=== PATIENT | female | born 1975 | race Caucasian/White ===

== ENCOUNTER 2018-11-25 23:45 | Emergency (ER) ==
[2018-11-25 23:52] VITALS: BP 149/93; TEMP 97.2; BMI 36.1
[2018-11-25] MEDS ORDERED: CITRATE OF MAGNESIA PO STA (23:57)
[2018-11-25] MEDS ORDERED: DULCOLAX RC STA (23:57)
[2018-11-25] MEDS ORDERED: SENNA PO STA (23:58)
--- NOTE | 2018-11-26 00:53 | CT ---
EXAM: CT of the abdomen and pelvis without contrast. HISTORY: Constipation. PROCEDURE: Contiguous axial CT images of the abdomen and pelvis without contrast with coronal and sa gittal reformats. FINDINGS: The liver, gallbladder, pancreas, spleen, adrenal glands and kidneys are normal in appearan ce. The abdominal aorta is normal in appearance. There is a small hiatal hernia. The appendix is not visualized and there are surgical clips along the margin of the cecum consistent with appendectomy. There is fecal impaction in the rectum which measures 8.6 x 7.5 cm on a single axial image. There is circumferential bowel wall thickening in the rectum measuring up to 0.8 cm with perirectal edema. No free fluid or free air in the abdomen or pelvis. The uterus is unremarkable. The bladder is adequ ately filled with no abnormality identified. The bones and soft tissues are unremarkable. Impression: Fecal impaction in the rectum as described. Circumferential bowel wall thickening in the rectum measuring 0.8 cm with perirectal edema. The diff erential diagnosis includes proctitis and stercoral colitis. Small hiatal hernia. Appendectomy.
--- NOTE | 2018-11-26 02:05 | ED.PDOC ---
General ED Provider: Dr. SHARON JEROME-ER Chief Complaint: Constipation Stated Complaint: im constipated Time Seen by Physician: 02:03 Mode of Arrival: Walk-In Information Source: Patient Exam Limitations: No limitations Primary Care Provider: SHARON JEROME Nursing and Triage Documentation Reviewed and Agree: Yes Does patient meet sepsis criteria?: No System Inflammatory Response Syndrome: Not Applicable Sepsis Protocol: For patient's 13 years and over: Temp is 96.8 and below OR 101 and greater Pulse >90 BPM Resp >20/minute Acutely Altered Mental Status Are patient's symptoms suggestive of a new infection, such as: -Pneumonia -Skin, Soft Tissue -Endocarditis -UTI -Bone, Joint Infection -Implantable Device -Acute Abdominal Infection -Wound Infection -Meningitis -Blood Stream Catheter Infection -Unknown GI Complaint Exam - Abdominal Pain Complaint/Exam Onset: Gradual Duration: 24 hrs Symptoms Are: Still present Timing: Constant Initial Severity: Mild Current Severity: Mild Location of Pain: Diffuse Character: Reports: Dull Aggravating: Reports: Movement Alleviating: Reports: Spontaneous resolution Associated Signs and Symptoms: Reports: Constipation Review of Systems - Review Of Systems Constitutional: Reports: No symptoms Eyes: Reports: No symptoms Ears, Nose, Mouth, Throat: Reports: No symptoms Respiratory: Reports: No symptoms Cardiac: Reports: No symptoms GI: Reports: Constipated : Reports: No symptoms Musculoskeletal: Reports: No symptoms Skin: Reports: No symptoms Neurological: Reports: No symptoms Endocrine: Reports: No symptoms Hematologic/Lymphatic: Reports: No symptoms All Other Systems: Reviewed and Negative Past Medical History - Past Medical History Previously Healthy: Yes Endocrine: Reports: Unknown Cardiovascular: Reports: Unknown Respiratory: Reports: Unknown Hematological: Reports: Unknown Gastrointestinal: Reports: Unknown Genitourinary: Reports: Unknown Neuro/Psych: Reports: Unknown Musculoskeletal: Reports: Unknown Cancer: Reports: Unknown Last Menstrual Period: 1 MONTH AGO - Surgical History General Surgical History: Reports: Unknown - Family History Family History: Reports: Unknown - Social History Smoking Status: Never smoker Hx Substance Use: No Alcohol Screening: Occasionally - Immunizations Tetanus Shot up to Date: Yes Physical Exam - Physical Exam Appearance: Well-appearing, No pain distress, Well-nourished Eyes: CRISTAL, EOMI, Conjunctiva clear ENT: Ears normal, Nose normal, Oropharynx normal Neck: Supple Respiratory: Airway patent Cardiovascular: RRR, Pulses normal, No rub, No murmur GI/: Soft Musculoskeletal: Normal strength, ROM intact, No edema, No calf tenderness Skin: Warm, Dry, Normal color Neurological: Sensation intact, Motor intact, Reflexes intact, Cranial nerves intact, Alert, Oriented Psychiatric: Affect appropriate Interpretation - Radiology Interpretation Radiology Interpretation By: Radiologist Radiology Results: Positive Exam Interpreted: CT Scan Critical Care Note - Critical Care Note Total Time (mins): 0 Course - Course Hematology/Chemistry: 11/26/18 00:00 11/26/18 00:00 Orders, Labs, Meds: Lab Review 11/26/18 11/26/18 11/26/18 00:00 00:00 00:00 WBC 18.26 H RBC 4.29 Hgb 12.1 Hct 35.7 L MCV 83.2 MCH 28.2 MCHC 33.9 RDW Coeff of Ayala 12.8 Plt Count 315 Immature Gran % (Auto) 0.7 Neut % (Auto) 88.0 Lymph % (Auto) 7.5 L [place] % (Auto) 3.3 Eos % (Auto) 0.2 Baso % (Auto) 0.3 Immature Gran # (Auto) 0.1 Neut # (Auto) 16.1 H Lymph # (Auto) 1.4 [place] # (Auto) 0.6 Eos # (Auto) 0.0 Baso # (Auto) 0.1 Sodium 136.1 Potassium 3.99 Chloride 106.6 Carbon Dioxide 23.2 Anion Gap 10.29 BUN 12.6 Creatinine 0.75 Estimated GFR (MDRD) 85.00 BUN/Creatinine Ratio 16.80 Glucose 131.1 H Calcium 8.60 TSH 2.260 Serum , Qual Negative Orders Category Date Time Status Enema [ED ENEMA/RECTAL TUBE] .ONCE EMERGENCY 11/25/18 23:58 Active BASIC METABOLIC PANEL Stat LAB 11/25/18 23:56 Completed CBC W/ AUTO DIFF Stat LAB 11/25/18 23:56 Completed SERUM Stat LAB 11/25/18 Completed THYROID STIMULATING HORMONE Stat LAB 11/25/18 23:56 Completed Bisacodyl [Dulcolax] MEDS 11/25/18 23:57 Discontinued 10 mg RC ONCE STA Magnesium Citrate [Citrate of Magnesia] MEDS 11/25/18 23:57 Discontinued 10 oz PO ONCE STA Sennosides [Senna] MEDS 11/25/18 23:58 Discontinued 8.6 mg PO ONCE STA CT ABDOMEN/PELVIS WO CONTRAST Stat RADS 11/25/18 23:57 Completed Medications Discontinued Medications Generic Name Dose Route Start Last Admin Trade Name Mina PRN Reason Stop Dose Admin Bisacodyl 10 mg 11/25/18 23:57 11/26/18 00:40 Dulcolax RC 11/25/18 23:58 10 mg ONCE STA Administration Magnesium Citrate 10 oz 11/25/18 23:57 11/26/18 00:39 Citrate Of Magnesia PO 11/25/18 23:58 10 oz ONCE STA Administration Sennosides 8.6 mg 11/25/18 23:58 11/26/18 00:39 Senna PO 11/25/18 23:59 8.6 mg ONCE STA Administration Vital Signs: Temp Pulse Resp BP Pulse Ox 11/25/18 23:45 97.2 F L 100 H 20 149/93 H 98 Departure - Departure Time of Disposition: 02:04 Disposition: HOME SELF-CARE Discharge Problem: Constipation Instructions: Constipation (ED) Condition: Good Pt referred to PMD for follow-up: Yes IPMP verified?: No Additional Instructions: f/u pcp prn Allergies/Adverse Reactions: Allergies No Known Drug Allergies Adverse Reaction (Verified 11/25/18 23:52) Home Medications: Ambulatory Orders Phentermine HCl [Adipex-P] 37.5 mg PO DAILY 11/25/18 Vibryd 40 mg PO DAILY 11/25/18 Disposition Discussed With: Patient, Family
== END 2018-11-26 02:10 | disposition home or self-care (01) ==
LOC: ED 23:45
DX: K59.00 Constipation, unspecified (principal)
CPT/HCPCS: 36415; 80048; 84443; 84703; 85025; 99283